=== PATIENT | male | born 1985 | race African-American/Black ===

== ENCOUNTER 2016-11-20 06:36 | Emergency (ER) | payer OTHER ==
[~2016-11-20] VITALS: Ht 175.3 cm; Wt 89.3 kg
[~2016-11-20 06:36] MED LIST: CARAFATE1 GM PO; MYCELEX10 MG PO; NOHOMEMEDS; OMEPRAZOLE40 M1 PO; ZYRTEC10 M2 PO
[2016-11-20 07:05] LABS: HEMATOCRIT 43.6 % (38.0-50.0); MCH 30.5 PG (29.0-34.0); MCHC 34.4 G/DL (30.0-36.0); MCV 88.6 FL (86-99); MEAN PLAT.VOLUME 10.2 uM^3 (9.0-12.4); PLATELET COUNT 226 K/uL (156-360); RBC DIS.WIDTH-CV 12.9 % (11.8-14.6); RBC DIS.WIDTH-SD 42.1 % (39-53); RED BLOOD COUNT 4.92 M/uL (4.00-5.50); WHITE BLOOD COUNT 5.5 K/uL (4.1-10.2)
[2016-11-20 08:08] LABS: ALKALINE PHOSPHATASE 45 IU/L (3-129); ANION GAP 8 MEQ/L (2-14); CHLORIDE 103 MEQ/L (99-109); DIRECT BILIRUBIN 0.2 mg/dL (0.0-0.3); GFR ESTIMATE (CALCULATED) > 59 mL/min/; GLUCOSE 95 mg/dL (70-99); LIPASE 19 U/L (1.0-51.0); POTASSIUM 3.6 MEQ/L (3.7-5.4); SAMPLE HEMOLYSIS CHECK 0; SAMPLE ICTERIC CHECK 0; SAMPLE LIPEMIA CHECK 0; SODIUM 138 MEQ/L (136-147); TOTAL BILIRUBIN 0.8 MG/DL (0.0-1.0); UREA NITROGEN (BUN) 12 mg/dL (9-23)
[2016-11-20] MEDS ORDERED: ZANTAC150 MG PO (08:17)
[2016-11-20] MEDS ORDERED: ZOFRAN4 MG PO (08:17)
[2016-11-20 08:35] VITALS: BP 139/69
== END 2016-11-20 08:38 | disposition home or self-care (01) ==
LOC: EME 06:36
PROVIDERS: Emergency Medicine
DX: R11.2 Nausea with vomiting, unspecified (principal); R10.84 Generalized abdominal pain; F17.200 Nicotine dependence, unspecified, uncomplicated
CPT/HCPCS: 80048; 80076; 83690; 85027; 99281; 99284; J2405; J7030

== ENCOUNTER 2016-11-22 01:36 | Emergency (ER) | payer OTHER ==
[~2016-11-22] VITALS: Ht 175.3 cm; Wt 90.3 kg
[~2016-11-22 01:36] MED LIST changes: +ZANTAC150 MG PO; +ZOFRAN4 MG PO
[2016-11-22 02:18] LABS: HEMATOCRIT 44.5 % (38.0-50.0); MCH 30.6 PG (29.0-34.0); MCHC 35.1 G/DL (30.0-36.0); MCV 87.3 FL (86-99); MEAN PLAT.VOLUME 10.4 uM^3 (9.0-12.4); PLATELET COUNT 257 K/uL (156-360); RBC DIS.WIDTH-CV 12.4 % (11.8-14.6); RBC DIS.WIDTH-SD 39.8 % (39-53); WHITE BLOOD COUNT 8.6 K/uL (4.1-10.2)
[2016-11-22 02:25] LABS: CHLORIDE 104 mEq/L (99-109); POTASSIUM 3.9 mEq/L (3.7-5.4); SODIUM 140 mEq/L (136-147)
[2016-11-22 02:28] LABS: GLUCOSE 94 mg/dL (70-99)
[2016-11-22 02:29] LABS: ANION GAP 9 MEQ/L (2-14)
[2016-11-22 02:30] LABS: TOTAL BILIRUBIN 0.5 mg/dL (0.0-1.0)
[2016-11-22 02:31] LABS: ALKALINE PHOSPHATASE 46 IU/L (3-129); GFR ESTIMATE (CALCULATED) > 59 mL/min/
[2016-11-22 02:32] LABS: UREA NITROGEN (BUN) 12 mg/dL (9-23)
[2016-11-22] MEDS ORDERED: MIRALAX255 GM PO (03:14)
[2016-11-22] MEDS ORDERED: ZOFRAN4 MG PO (03:14)
[2016-11-22 03:41] VITALS: BP 132/80
== END 2016-11-22 03:43 | disposition home or self-care (01) ==
LOC: EME 01:36
DX: R10.84 Generalized abdominal pain (principal); R11.2 Nausea with vomiting, unspecified; F17.200 Nicotine dependence, unspecified, uncomplicated
CPT/HCPCS: 74176; 80053; 81003; 85027; 99281; 99283

== ENCOUNTER 2017-02-20 19:30 | Emergency (ER) | payer OTHER ==
[~2017-02-20] VITALS: Ht 175.3 cm; Wt 92.4 kg
[~2017-02-20 19:30] MED LIST changes: +MIRALAX255 GM PO
[2017-02-20 20:09] LABS: HEMATOCRIT 41.6 % (38.0-50.0); MCH 29.6 PG (29.0-34.0); MCHC 34.1 G/DL (30.0-36.0); MCV 86.7 FL (86-99); MEAN PLAT.VOLUME 10.2 uM^3 (9.0-12.4); PLATELET COUNT 247 K/uL (156-360); RBC DIS.WIDTH-CV 12.4 % (11.8-14.6); RBC DIS.WIDTH-SD 39.4 % (39-53)
[2017-02-20 20:21] LABS: CHLORIDE 107 mEq/L (99-109); POTASSIUM 4.7 mEq/L (3.7-5.4); SODIUM 140 mEq/L (136-147)
[2017-02-20 20:23] LABS: GLUCOSE 96 mg/dL (70-99)
[2017-02-20 20:24] LABS: ANION GAP 7 MEQ/L (2-14)
[2017-02-20 20:25] LABS: TOTAL BILIRUBIN 0.7 mg/dL (0.0-1.0)
[2017-02-20 20:27] LABS: ALKALINE PHOSPHATASE 51 IU/L (3-129); GFR ESTIMATE (CALCULATED) > 59 mL/min/
[2017-02-20 20:28] LABS: UREA NITROGEN (BUN) 13 mg/dL (9-23)
[2017-02-20 20:30] LABS: LIPASE 18 U/L (1.0-51.0)
[2017-02-20 21:01] LABS: ADD MIUA? NO; BILIRUBIN NEGATIVE; BLOOD NEGATIVE; COLOR YELLOW ((YELLOW)); GLUCOSE (STRIP) NEGATIVE; KETONES NEGATIVE; LEUKOCYTES NEGATIVE; NITRITE NEGATIVE; PROTEIN (STRIP) NEGATIVE; SPECIFIC GRAVITY 1.023 (1.000-1.030)
[2017-02-20] MEDS ORDERED: PEPCID20 MG PO (21:13)
[2017-02-20 21:51] VITALS: BP 113/53
[2017-02-20 22:51] LABS: UCUL ADDED? NO
== END 2017-02-20 21:54 | disposition home or self-care (01) ==
LOC: EME 19:30
PROVIDERS: Physician Assistant Medical
DX: K29.70 Gastritis, unspecified, without bleeding (principal); J45.909 Unspecified asthma, uncomplicated; F17.200 Nicotine dependence, unspecified, uncomplicated
CPT/HCPCS: 80053; 81003; 83690; 85027; 99281; 99284

== ENCOUNTER 2017-05-25 14:24 | Emergency (ER) | payer OTHER ==
[~2017-05-25] VITALS: Ht 175.3 cm; Wt 94.2 kg
[~2017-05-25 14:24] MED LIST changes: +ALBUTEROL2.5 MG/3 M IH; +AUGMENTIN875 MG PO; +GUAIFEN-CODEINE10 ML PO; +MEDROL DOSEPAK4 MG PO; +PEPCID20 MG PO; +PROAIR HFA8.5 GM IH
[2017-05-25] MEDS ORDERED: PREDNISONE20 MG PO (19:00)
[2017-05-25] MEDS ORDERED: VENTOLIN HFA18 GM IH (19:00)
[2017-05-25 19:23] VITALS: BP 117/61
== END 2017-05-25 19:23 | disposition home or self-care (01) ==
LOC: EME 14:24
DX: J20.9 Acute bronchitis, unspecified (principal); J45.909 Unspecified asthma, uncomplicated; K21.9 Gastro-esophageal reflux disease without esophagitis; F17.200 Nicotine dependence, unspecified, uncomplicated
CPT/HCPCS: 71046; 99281; 99284

== ENCOUNTER 2017-09-02 00:35 | Emergency (ER) | payer OTHER ==
[~2017-09-02 00:35] MED LIST changes: +PREDNISONE20 MG PO; +VENTOLIN HFA18 GM IH
[2017-09-02 00:49] LABS: BASOPHIL (%) 0.8 % (0-1); BASOPHIL COUNT 0.1 K/uL (0-0.1); EOSINOPHIL (%) 0.5 % (0-5); EOSINOPHIL COUNT 0.1 K/uL (0-0.3); HEMATOCRIT 42.7 % (38.0-50.0); HEMOGLOBIN 14.9 G/DL (12.5-16.6); IMMATURE GRANULOCYTE (%) 0.4 % (0.0-0.7); LYMPHOCYTE (%) 25.4 % (15-42); LYMPHOCYTE COUNT 2.9 K/uL (1.0-2.8); MCHC 34.9 G/DL (30.0-36.0); MCV 85.9 FL (86-99); MONOCYTE (%) 6.2 % (3-12); MONOCYTE COUNT 0.7 K/uL (0-0.8); NEUTROPHIL (%) 66.7 % (45-76); NEUTROPHIL COUNT 7.5 K/uL (1.8-6.4); PLATELET COUNT 292 K/uL (156-360); RBC DIS.WIDTH-CV 13.2 % (11.8-14.6); RBC DIS.WIDTH-SD 41.3 % (39-53); RED BLOOD COUNT 4.97 M/uL (4.00-5.50); WHITE BLOOD COUNT 11.2 K/uL (4.1-10.2)
[2017-09-02 00:57] LABS: AMYLASE 64 IU/L (1-118); CHLORIDE 108 mEq/L (99-109); POTASSIUM 3.5 mEq/L (3.7-5.4); SODIUM 144 mEq/L (136-147)
[2017-09-02 00:59] LABS: GLUCOSE 92 mg/dL (70-99)
[2017-09-02 01:02] LABS: SERUM ETHYL ALCOHOL 197 mg/dL
[2017-09-02 01:03] LABS: CREATININE 1.3 mg/dL (0.6-1.3); GFR ESTIMATE (CALCULATED) > 59 mL/min/ (58.99-99999)
[2017-09-02 01:04] LABS: UREA NITROGEN (BUN) 9 mg/dL (9-23)
[2017-09-02 01:06] LABS: LIPASE 17 U/L (1.0-51.0)
[2017-09-02 01:36] LABS: AMPHETAMINE NEGATIVE (500 ng/mL); BARBITURATES NEGATIVE (200 ng/mL); BENZODIAZEPINES NEGATIVE (150 ng/mL); BUPRENORPHINE NEGATIVE (10 ng/mL); COCAINE NEGATIVE (150 ng/mL); METHADONE NEGATIVE (200 ng/mL); METHAMPHETAMINE NEGATIVE (500 ng/mL); OPIATES (MORPHINE) NEGATIVE (100 ng/mL); OXYCODONE NEGATIVE (100 ng/mL); PHENCYCLIDINE NEGATIVE (25 ng/mL); PROPOXYPHENE NEGATIVE (300 ng/mL); THC CANNABINOIDS PRESUMPTIVE POSITIVE (50 ng/mL); TRICYCLIC ANTIDEPRESSANTS NEGATIVE (300 ng/mL)
[2017-09-02 01:37] LABS: APPEARANCE CLEAR ((CLEAR)); BILIRUBIN NEGATIVE; BLOOD NEGATIVE; COLOR STRAW ((YELLOW)); GLUCOSE (STRIP) NEGATIVE; KETONES NEGATIVE; LEUKOCYTES NEGATIVE; NITRITE NEGATIVE; PROTEIN (STRIP) NEGATIVE; UCUL ADDED? NO; UROBILINOGEN 0.2 MG/DL (0.2-1.0)
== END 2017-09-02 02:37 | disposition home or self-care (01) ==
LOC: EME 00:35
PROVIDERS: Emergency Medicine
DX: S21.212A Laceration without foreign body of left back wall of thorax without penetration into thoracic cavity, initial encounter (principal); X99.9XXA Assault by unspecified sharp object, initial encounter; Z23 Encounter for immunization
CPT/HCPCS: 71260; 80048; 81003; 82150; 83690; 84999; 85025; 86850; 86900; 86901; 99281; 99285; G0480